=== PATIENT | female | born 1995 | race Caucasian/White ===

== ENCOUNTER 2023-02-17 13:28 | Emergency (ER) | payer BC ==
[2023-02-17 13:47] VITALS: RESP 16; TEMP 99.2; BMI 23.2
[2023-02-17] MEDS ORDERED: SODIUM CHLORIDE 0.9% 1000 ML INFUS.BAG IV ONE (14:35)
[2023-02-17] MEDS ORDERED: METOCLOPRAMIDE HCL INJECTION 10 MG/2 ML VIAL IVPB ONE (14:35)
[2023-02-17] MEDS ORDERED: METOCLOPRAMIDE HCL INJECTION 10 MG/2 ML VIAL ONE (14:42)
[2023-02-17] MEDS ORDERED: DEXAMETHASONE SOD PHOSPHATE 4 MG/1 ML VIAL IVPUSH ONE (16:22)
[2023-02-17] MEDS ORDERED: DEXAMETHASONE SOD PHOSPHATE 4 MG/1 ML VIAL ONE (16:38)
[2023-02-17 16:56] VITALS: BP 100/60; PULSE 60
== END 2023-02-17 17:01 | disposition home or self-care (01) ==
LOC: FER 13:28 → FM/S 13:44 → FER 17:01
PROC: 3E033GC Introduction of Other Therapeutic Substance into Peripheral Vein, Percutaneous Approach (ICD-10-PCS; principal; 2023-02-17)
PROC: 3E033GC Introduction of Other Therapeutic Substance into Peripheral Vein, Percutaneous Approach (ICD-10-PCS; 2023-02-17)
PROC: 3E033GC Introduction of Other Therapeutic Substance into Peripheral Vein, Percutaneous Approach (ICD-10-PCS; 2023-02-17)
DX: R51.9 Headache, unspecified (principal); M79.605 Pain in left leg
CPT/HCPCS: 99284-25